=== PATIENT | female | born 1990 | race Two or more races ===

== ENCOUNTER → 2017-04-24 | Outpatient (REF) | payer MEDICAID, OTHER | LOC: M SFHCLERA 12:46 | PROVIDERS: ATTEND Nurse Practitioner Family | DX: J02.9 Acute pharyngitis, unspecified (principal) ==

== ENCOUNTER → 2018-06-11 | Outpatient (CLI) | payer OTHER, MEDICAID | LOC: M LRY 12:08 | DX: S69.91XA Unspecified injury of right wrist, hand and finger(s), initial encounter (principal); X58.XXXA Exposure to other specified factors, initial encounter; Y92.89 Other specified places as the place of occurrence of the external cause | CPT/HCPCS: 73130 ==

== ENCOUNTER → 2018-12-17 | Outpatient (CLI) | payer OTHER ==
--- NOTE | 2018-12-17 08:07 | REP ---
CT of the right foot: Axial images are acquired and reformatted sagittal coronal projections. There are no comparison studies available. There is a fiberglass cast. There is a nondisplaced fracture along the superior posterior margin of the first cuneiform. I suspect the fracture is interarticular. Mineralization and joint spaces are otherwise unremarkable. There is no dislocation. Electronically Signed by Milton Richey MD 12/17/2018 07:59 A
== END ==
LOC: M RAD 07:18
PROVIDERS: ATTEND Orthopaedic Surgery Sports Medicine
DX: S92.244A Nondisplaced fracture of medial cuneiform of right foot, initial encounter for closed fracture (principal); Y92.89 Other specified places as the place of occurrence of the external cause; Y93.89 Activity, other specified; Y99.8 Other external cause status; X58.XXXA Exposure to other specified factors, initial encounter